=== PATIENT | female | born 1980 | race Caucasian/White ===

== ENCOUNTER 2019-03-21 20:54 | Emergency (ER) | payer SELFPAY ==
[2019-03-21] MEDS ORDERED: ASPIRIN 81 MG TABLET, CHEWABLE PO ONE (22:01)
--- NOTE | 2019-03-21 22:04 | ER Document Report ---
ED Medical Screen (RME) - General Chief Complaint: Chest Pain Stated Complaint: CHEST PAIN,LEFT SIDE CHEST PAIN,SHORT OF BREATH Time Seen by Provider: 03/21/19 21:54 Notes: 39-year-old female, chief complaint of sharp left-sided chest pain which is intermittently worse, present since yesterday. She states she can feel a specific spot of pain and it is worse if she presses on it. Reports a history of panic attacks but states this feels different. She smokes cigarettes and marijuana, denies any prescribed medications. Denies recreational drugs otherwise. Reports positive family history of [place]. She describes the pain as "a kidney infection in your chest instead of in your kidneys". TRAVEL OUTSIDE OF THE [place] IN LAST 30 DAYS: No - Related Data Allergies/Adverse Reactions: No Known Allergies Allergy (Unverified 03/21/19 20:57) Past Medical History - Social History Frequency of alcohol use: None Drug Abuse: Marijuana Renal/ Medical History: Denies: Hx Peritoneal Dialysis Past Surgical History: Reports: Hx Appendectomy, Hx Neurologic Surgery - cyst removed from spine, Hx Orthopedic Surgery - R knee, facial reconstruction, plate in skull, Hx Tubal Ligation Physical Exam - Vital signs Vitals: Temp Pulse Resp BP Pulse Ox 98.0 F 79 16 112/66 99 03/21/19 21:09 03/21/19 21:09 03/21/19 21:09 03/21/19 21:09 03/21/19 21:09 - Respiratory Respiratory status: No respiratory distress Chest status: Tender - Left mid chest wall tenderness which is mild Breath sounds: Normal Chest palpation: Normal - Cardiovascular Rhythm: Regular Heart sounds: Normal auscultation, S1 appreciated, S2 appreciated Course - Re-evaluation Re-evalutation: I have greeted and performed a rapid initial assessment of this patient. A comprehensive ED assessment and evaluation of the patient, analysis of test results and completion of the medical decision making process will be conducted by additional ED providers. - Vital Signs Vital signs: Temp Pulse Resp BP Pulse Ox 98.0 F 79 16 112/66 99 03/21/19 21:09 03/21/19 21:09 03/21/19 21:09 03/21/19 21:09 03/21/19 21:09
--- NOTE | 2019-03-21 22:54 | RADIOLOGY REPORT (SQ) ---
EXAM DESCRIPTION: XR CHEST 2 VIEWS COMPLETED DATE/TME: 03/21/2019 22:01 CLINICAL HISTORY: 39 years, Female, chest pain COMPARISON: None. NUMBER OF VIEWS: TECHNIQUE: LIMITATIONS: None. FINDINGS: No evidence of pulmonary infiltrate or pleural effusion. The heart and mediastinum are unremarkable. Pulmonary vascularity appears normal. IMPRESSION: Normal chest x-ray. copyright 2010 [facility]- All Rights Reserved
[2019-03-21 23:48] LABS: ABSOLUTE BASOPHILS # (AUTO) 0.1 10^3/uL (0.0-0.2); ABSOLUTE EOSINOPHILS # (AUTO) 0.3 10^3/uL (0.0-0.6); ABSOLUTE LYMPHOCYTES (AUTO) 2.8 10^3/uL (0.5-4.7); ABSOLUTE MONOCYTES (AUTO) 0.7 10^3/uL (0.1-1.4); ABSOLUTE NEUT (AUTO) 7.8 10^3/uL (1.7-8.2); BASOPHILS % (AUTO) 0.9 % (0-2); EOSINOPHILS % (AUTO) 2.4 % (0-6); HEMATOCRIT 35.7 % (36.0-47.0); HEMOGLOBIN 12.2 g/dL (12.0-15.5); LYMPHOCYTES % (AUTO) 24.2 % (13-45); MEAN CORPUSCULAR HEMOGLOBIN 32.4 pg (27.0-33.4); MEAN CORPUSCULAR HGB CONC 34.2 g/dL (32.0-36.0); MEAN CORPUSCULAR VOLUME 95 fl (80-97); MONOCYTES % (AUTO) 6.2 % (3-13); PLATELET COUNT 330 10^3/uL (150-450); RED BLOOD COUNT 3.76 10^6/uL (3.72-5.28); RED CELL DISTRIBUTION WIDTH 14.2 % (11.5-14.0); SEGMENTED NEUTROPHILS % (AUTO) 66.3 % (42-78); TOTAL CELLS COUNTED % (AUTO) 100 %; WHITE BLOOD COUNT 11.7 10^3/uL (4.0-10.5)
[2019-03-21 23:57] LABS: ALANINE AMINOTRANSFERASE 28 U/L (9-52); ALBUMIN 3.8 g/dL (3.5-5.0); ALKALINE PHOSPHATASE 42 U/L (38-126); ANION GAP 7 (5-19); ASPARTATE AMINO TRANSFERASE 17 U/L (14-36); BILIRUBIN,DIRECT 0.1 mg/dL (0.0-0.4); BILIRUBIN,TOTAL 0.1 mg/dL (0.2-1.3); BLOOD UREA NITROGEN 15 mg/dL (7-20); CALCIUM 9.3 mg/dL (8.4-10.2); CARBON DIOXIDE 25 mmol/L (22-30); CHLORIDE 107 mmol/L (98-107); GLUCOSE 83 mg/dL (75-110); POTASSIUM 4.4 mmol/L (3.6-5.0); SODIUM 138.6 mmol/L (137-145); TOTAL PROTEIN 6.3 g/dL (6.3-8.2)
--- NOTE | 2019-03-22 01:08 | ER Document Report ---
ED General - General Chief Complaint: Chest Pain Stated Complaint: CHEST PAIN,LEFT SIDE CHEST PAIN,SHORT OF BREATH Time Seen by Provider: 03/21/19 21:54 Notes: Patient is a 39-year-old female presents with complaint of pain over the left costochondral junction. She says is been there for 2 days. She says is worse when she coughs or moves or twists her body. Says it is worse when taking a deep breath. No leg pain or leg swelling. No travel outside the country. No recent long trips or plane flights. No history of PE or DVT. No recent fevers or infections. No history of coronary disease. No other complaints at this time. TRAVEL OUTSIDE OF THE [place] IN LAST 30 DAYS: No - Related Data Allergies/Adverse Reactions: No Known Allergies Allergy (Unverified 03/21/19 20:57) Past Medical History - Social History Smoking Status: Current Every Day Smoker Frequency of alcohol use: None Drug Abuse: Marijuana Family History: Reviewed & Not Pertinent Patient has suicidal ideation: No Patient has homicidal ideation: No Renal/ Medical History: Denies: Hx Peritoneal Dialysis Past Surgical History: Reports: Hx Appendectomy, Hx Neurologic Surgery - cyst removed from spine, Hx Orthopedic Surgery - R knee, facial reconstruction, plate in skull, Hx Tubal Ligation Review of Systems - Review of Systems Notes: My Normal Review Basic REVIEW OF SYSTEMS: CONSTITUTIONAL : Denies fever, chills, or sweats. Denies recent illness. EENT: Denies eye, ear, throat, or mouth pain or symptoms. Denies nasal or sinus congestion. CARDIOVASCULAR: Chest pain. RESPIRATORY: Denies cough, cold, or chest congestion. Denies shortness of breath, difficulty breathing, or wheezing. GASTROINTESTINAL: Denies abdominal pain. Denies nausea, vomiting, or diarrhea. MUSCULOSKELETAL: Denies neck or back pain or joint pain or swelling. SKIN: Denies rash or skin lesions. NEUROLOGICAL: Denies altered mental status or loss of consciousness. Denies headache. Denies weakness or paralysis or loss of use of either side. Denies problems with gait or speech. Denies sensory or motor loss. ALL OTHER SYSTEMS REVIEWED AND NEGATIVE. Physical Exam - Vital signs Vitals: Temp Pulse Resp BP Pulse Ox 98.0 F 79 16 112/66 99 03/21/19 21:09 03/21/19 21:09 03/21/19 21:09 03/21/19 21:09 03/21/19 21:09 - Notes Notes: General Appearance: Well nourished, alert, cooperative, no acute distress, mild obvious discomfort. Vitals: reviewed, See vital signs table. Eyes: PERRL, EOMI, Conjuctiva clear Chest wall: Patient has pain to palpation that is pinpoint over the left anterior chest wall at the costochondral junction. Pain is also easily reprodu cible with twisting or movement of the torso. Neck: Supple, no neck tenderness, No thyromegaly Lungs: No wheezing, No rales, No rhonci, No accessory muscle use, good air exchange bilaterally. Heart: Normal rate, Regular rythm, No murmur, no rub Abdomen: Normal BS, soft, No rigidity, No abdominal tenderness, No guarding, no rebound, no abdominal masses, no organomegaly Extremities: good pulses in all extremities, no swelling or tenderness in the extremities, no edema. Skin: warm, dry, appropriate color, no rash Neuro: speech clear, oriented x 3, normal affect, responds appropriately to questions. Course - Re-evaluation Re-evalutation: 03/22/19 01:10 Based on the patient's exam I suspect she has costochondritis. She has pinpoint pain is easily reproducible palpation and also reproducible with movement. I do not suspect PE that her pain is reproducible palpation, she is not tachypnea, she is not tachycardic, she is not hypoxemic, she is had no leg pain or leg swelling. She is PERC rule negative. At this time for the patient is safe to be discharged home. I encouraged her return to ER immediately if she has worsen ing pain, difficulty breathing, fevers, or feels unwell. Patient agrees with plan will be discharged home. Dictation of this chart was performed using voice recognition software; therefore, there may be some unintended grammatical errors. - Vital Signs Vital signs: Temp Pulse Resp BP Pulse Ox 98.0 F 79 17 98/61 L 99 03/21/19 21:09 03/21/19 21:09 03/22/19 01:03 03/22/19 01:03 03/22/19 01:03 - Laboratory Result Diagrams: 03/21/19 23:24 03/21/19 23:24 Laboratory results interpreted by me: 03/21/19 03/21/19 23:24 23:24 WBC 11.7 H Hct 35.7 L RDW 14.2 H Total Bilirubin 0.1 L - EKG Interpretation by Me Additional EKG results interpreted by me: 03/22/19 01:00 EKG is reviewed and interpreted by me. EKG shows sinus rhythm with a rate of [address] segment elevation or depression. No ischemic T wave inversions. CT interval, QRS duration, QTc intervals are within normal range. No old EKG available for comparison. Discharge - Discharge Clinical Impression: Chest pain Qualifiers: Chest pain type: unspecified Qualified Code(s): R07.9 - Chest pain, unspecified Condition: Good Disposition: HOME, SELF-CARE Additional Instructions: Based on your exam I suspect that you likely have something called costochondritis. This is inflammation or injury to the junction of where the cartilage meets the rib. It causes pain when you move or when you push over the area. This is very much like the pain you are experiencing. Blood work was done looking at your heart. Your blood work was normal. Your x-ray does not show any concerning findings in the lung salazar. At this time I feel you are safe to be discharged home. Please take Tylenol 500 mg every 4 hours and/or ibuprofen 600 mg every 8 hours to help with pain. Take the ibuprofen with food. Return to the ER immediately if you have fevers, difficulty breathing, worsening pain, or feel unwell. Follow-up with your doctor in 3 to 5 days for reevaluation. Forms: Return to Work
[2019-03-22] MEDS ORDERED: KETOROLAC TROMETHAMINE 10 MG TABLET PO ONE (01:10)
[2019-03-22 01:26] VITALS: BP 98/61
--- NOTE | 2019-03-22 08:57 | EKG REPORT ---
SEVERITY:- NORMAL ECG - SINUS RHYTHM : Confirmed by: Alexandru Calloway MD 22-Mar-2019 08:56:46
== END 2019-03-22 01:21 | disposition home or self-care (01) ==
LOC: ER 20:54
DX: R07.9 Chest pain, unspecified (principal); R06.02 Shortness of breath; F17.200 Nicotine dependence, unspecified, uncomplicated; Z98.51 Tubal ligation status
CPT/HCPCS: 93005; 99284; 36415; 84703; 85025; 80053; 84484; 71046; 93010; J3490